=== PATIENT | male | born 1960 | race Two or more races ===

== ENCOUNTER 2022-08-31 06:22 | Outpatient (CLI) | payer OTHER | END 2022-08-31 06:32 | disposition home or self-care (01) | LOC: LAB 06:22 | PROVIDERS: ATTEND Urology | DX: N39.0 Urinary tract infection, site not specified (principal) ==

== ENCOUNTER 2022-08-31 07:41 | Outpatient (CLI) | payer OTHER | END 2022-08-31 07:52 | disposition home or self-care (01) | LOC: RAD 07:41 | PROVIDERS: ATTEND Urology | DX: N20.1 Calculus of ureter (principal) ==